=== PATIENT | female | born 1995 | race Two or more races ===

== ENCOUNTER 2018-05-28 13:48 | Emergency (ER) | payer OTHER ==
[~2018-05-28] VITALS: Ht 162.6 cm; Wt 79.4 kg
[2018-05-28] MEDS ORDERED: PRENATAL + DHA1 EAC1 PO (14:05)
== END 2018-05-28 21:42 | disposition home or self-care (01) ==
LOC: ER 13:48
DX: O20.0 Threatened abortion (principal); Z34.01 Encounter for supervision of normal first pregnancy, first trimester

== ENCOUNTER 2019-01-12 22:35 | Inpatient (IN) | payer OTHER ==
[~2019-01-12] VITALS: Ht 160 cm; Wt 3.2 kg
[~2019-01-12 22:35] MED LIST: PRENATAL + DHA1 EAC1 PO
== END 2019-01-17 17:59 | disposition home or self-care (01) | DRG 788 ==
LOC: OBS/DEL 22:35 → LDR 01-13 22:25 → OB/GYN 01-13 22:25
PROVIDERS: ADMIT Obstetrics & Gynecology
PROC: 3E0P7VZ Introduction of Hormone into Female Reproductive, Via Natural or Artificial Opening (ICD-10-PCS; 2019-01-13)
PROC: 3E033VJ Introduction of Other Hormone into Peripheral Vein, Percutaneous Approach (ICD-10-PCS; 2019-01-13)
PROC: 4A1HXCZ Monitoring of Products of Conception, Cardiac Rate, External Approach (ICD-10-PCS; 2019-01-13)
PROC: 10D00Z1 Extraction of Products of Conception, Low, Open Approach (ICD-10-PCS; principal; 2019-01-14 16:00)
DX: O82 Encounter for cesarean delivery without indication (principal); O75.0 Maternal distress during labor and delivery; Z3A.38 38 weeks gestation of pregnancy; Z37.0 Single live birth